=== PATIENT | female | born 1955 | race Caucasian/White ===

== ENCOUNTER 2016-11-19 16:31 | Emergency (ER) | payer OTHER ==
[~2016-11-19] VITALS: Ht 149.9 cm; Wt 55.0 kg
[~2016-11-19 16:31] MED LIST: AMI10 PO; ATEN-122; B12/1CAP; CITA-104 PO; GABA300C16 PO; GEMF600T PO; LEVO25TA59 PO; LISI10TA2 PO; LORA10TA3 PO; TRIA1CAP70
[2016-11-19 16:35] VITALS: Ht 149.9 cm; Wt 55.0 kg
[2016-11-19] MEDS ORDERED: SOD CHLORIDE 0.9% 1,000 ML IV STA (19:35)
[2016-11-19 20:09] LABS: BASOPHILS % 0.5 % (0.0-2.0); EOSINOPHILS # 0.3 10^3/ul (0.0-0.5); HEMOGLOBIN 12.9 g/dl (12.0-16.0); LYMPHOCYTES # 3.1 10^3/ul (0.8-2.9); LYMPHOCYTES % 38.5 % (15.0-51.0); MEAN CORPUSCULAR HEMOGLOBIN 33.3 pg (29.0-33.0); MEAN CORPUSCULAR HGB CONC 34.9 g/dl (32.0-37.0); MEAN CORPUSCULAR VOLUME 95.6 fl (82.0-101.0); MEAN PLATELET VOLUME 11.6 fl (7.4-10.4); MONOCYTE # 0.7 10^3/ul (0.3-0.9); NEUTROPHILS % 48.8 % (39.0-77.0); PLATELET COUNT 185 10^3/UL (140-415); RED BLOOD COUNT 3.87 10^6/ul (4.20-5.40); RED CELL DISTRIBUTION WIDTH 13.1 % (11.5-14.5); WHITE BLOOD COUNT 8.2 10^3/ul (4.8-10.8)
[2016-11-19 20:10] LABS: ADD UMIC YES; UR ASCORBIC ACID NEGATIVE (NEGATIVE); UR BACTERIA FEW /HPF (NONE SEEN); UR BILIRUBIN (Dip) NEGATIVE (NEGATIVE); UR BLOOD (Dip) NEGATIVE (NEGATIVE); UR CLARITY SLIGHTLY CLOUDY (CLEAR); UR COLOR YELLOW (YELLOW); UR GLUCOSE (Dip) NEGATIVE (NEGATIVE); UR KETONES (Dip) NEGATIVE (NEGATIVE); UR LEUKOCYTE ESTERASE (Dip) 3+ Leu/ul (NEGATIVE); UR NITRITE (Dip) NEGATIVE (NEGATIVE); UR RBC 2 /HPF (0-5); UR SPECIFIC GRAVITY (Dip) 1.009 (1.003-1.030); UR SQUAMOUS EPITHELIAL CELL FEW /HPF (FEW); UR TOTAL PROTEIN (Dip) NEGATIVE (NEGATIVE); UR UROBILINOGEN (Dip) NEGATIVE (NEGATIVE)
[2016-11-19 20:31] LABS: ALBUMIN 4.4 g/dl (3.3-4.9); ALBUMIN/GLOBULIN RATIO 1.46; BILIRUBIN,INDIRECT 0.1 mg/dl (0-1.1); BILIRUBIN,TOTAL 0.1 mg/dl (0.2-1.3); CALCIUM 10.1 mg/dl (8.4-10.2); CREATININE 0.84 mg/dl (0.44-1.00); POTASSIUM 3.3 mmol/L (3.5-5.1); TOTAL PROTEIN 7.4 g/dl (6.1-8.1)
--- NOTE | 2016-11-19 21:17 | RADRPT ---
PROCEDURE: XR Chest. CLINICAL INDICATION: Abdominal pain. TECHNIQUE: PA and Lateral views of the chest were obtained. COMPARISON: 09/26/2012. FINDINGS: The cardiomediastinal silhouette is within normal limits. Improved lung inflation over the interval The lungs are clear. No signs of pleural fluid or pneumothorax are seen. The osseous structures and soft tissues are unremarkable. IMPRESSION: No evidence for active cardiopulmonary disease. RPTAT: [facility] Physician Madi Date Time Electronically viewed and signed by Physician Madi on 11/19/2016 21:16 RS/
[2016-11-19] MEDS ORDERED: KETOROLAC 15 MG INJ ONE (21:23)
[2016-11-19] MEDS ORDERED: KETOROLAC 15 MG INJ IV ONE (22:33)
--- NOTE | 2016-11-19 23:29 | ERD ---
ER Documentation Chief Complaint Date/Time DATE: 11/19/16 TIME: 23:29 Chief Complaint GENERALIZED WEAKNESS X 4 DAYS. NO FEVER, NO N/V , FEELS WEAK HPI This is a 61-year-old female with a past medical history of hypertension, hypothyroidism, diabetes, peripheral neuropathy, previous vitamin deficiencies who is presenting with general fatigue for approximately 1 week. She denies fever or chills. She denies nausea or vomiting. She does have a mild general headache, which she has chronically. She denies chest pain or trouble breathing. She denies any abdominal pain. She denies changes to bowel movements. She had does endorse increased urinary frequency but no pain or burning. She has no focal deficits. She has no weakness or numbness or tingling to the face or extremities. ROS All systems reviewed and are negative except as per history of present illness. Medications Home Meds Active Scripts Cephalexin* (Cephalexin*) 500 Mg Capsule, 500 MG PO BID, #7 CAP Prov:NENITA ARRIOLA MD 11/19/16 Reported Medications Amitriptyline Hcl* (Elavil*) 10 Mg Tab, 10 MG PO HS 08/15/12 Gemfibrozil* (Lopid*) 600 Mg Tablet, 600 MG PO BID 08/15/12 Citalopram Hydrobromide* (Citalopram Hydrobromide*) 40 Mg Tablet, 40 MG PO DAILY 08/15/12 Loratadine* (Loratadine*) 10 Mg Tablet, 10 MG PO DAILY 08/15/12 Levothyroxine Sodium* (Synthroid*) 25 Mcg Tablet, 0.025 MG PO DAILY 08/15/12 Lisinopril* (Lisinopril*) 10 Mg Tablet, 10 MG PO DAILY 08/15/12 Gabapentin* (Gabapentin*) 300 Mg Capsule, 300 MG PO TID for 1 Day 11/15/10 B12/Fa/D3/Calc Cit/Zn Aa Chelt (Rx Balance Int Capsule) 1 Cap Capsule 02/10/10 Atenolol* (Tenormin*) 50 Mg Tablet 02/10/10 Triamterene/Hydrochlorothiazid (Triamterene-Hctz 37.5-25 Mg Cp) 1 Cap Capsule 02/10/10 Allergies Allergies: Coded Allergies: No Known Allergy (Verified , 11/19/16) PMhx/Soc History of Surgery: Yes (cholecycystectomy.hysterectomy) Anesthesia Reaction: No Hx Neurological Disorder: Yes (fibromyalgia) Hx Respiratory Disorders: No Hx Cardiac Disorders: Yes (htn) Hx Psychiatric Problems: No Hx Alcohol Use: No Hx Substance Use: No Hx Tobacco Use: No Smoking Status: Unknown if ever smoked FmHx Family History: diabetes Physical Exam Vitals Vital Signs Date Time Temp Pulse Resp B/P Pulse Ox O2 Delivery O2 Flow Rate FiO2 11/19/16 23:54 63 18 105/68 100 Room Air 11/19/16 23:00 63 18 95/56 100 Room Air 11/19/16 21:00 64 19 102/65 100 Room Air 11/19/16 19:35 58 18 137/83 100 Room Air 11/19/16 16:35 98.0 65 20 120/71 100 Physical Exam Const: NAD, Well developed, Well nourished Head: Atraumatic Eyes: Normal Conjunctiva ENT: Normal External Ears, Nose and Mouth. Neck: Full range of motion..~ No meningismus. Resp: Clear to auscultation bilaterally Cardio: Regular rate and rhythm, no murmurs Abd: Soft, non tender, non distended. Normal bowel sounds Skin: No petechiae or rashes Back: No midline or flank tenderness Ext: No cyanosis, or edema Neur: Awake and alert, Normal strength and sensation and coordination Psych: Normal Mood and Affect Result Diagram: 11/19/16194511/19/161945 Results 24 hrs Laboratory Tests Test 11/19/16 19:28 11/19/16 19:46 11/19/16 20:46 Urine Color YELLOW Urine Clarity SLIGHTLY CLOUDY Urine pH 5.0 Urine Specific [place] 1.009 Urine Ketones NEGATIVEmg/dL Urine Nitrite NEGATIVEmg/dL Urine Bilirubin NEGATIVEmg/dL Urine Urobilinogen NEGATIVEmg/dL Urine Leukocyte Esterase 3+[place]/ul Urine Microscopic RBC 2/HPF Urine Microscopic WBC 34/HPF Urine Squamous Epithelial Cells FEW/HPF Urine Bacteria FEW/HPF Urine Hemoglobin NEGATIVEmg/dL Urine Glucose NEGATIVEmg/dL Urine Total Protein NEGATIVEmg/dl White Blood Count 8.210^3/ul Red Blood Count 3.8710^6/ul Hemoglobin 12.9g/dl Hematocrit 37.0% Mean Corpuscular Volume 95.6fl Mean Corpuscular Hemoglobin 33.3pg Mean Corpuscular Hemoglobin Concent 34.9g/dl Red Cell Distribution Width 13.1% Platelet Count 02028^3/UL Mean Platelet Volume 11.6fl Neutrophils % 48.8% Lymphocytes % 38.5% Monocytes % 8.0% Eosinophils % 4.0% Basophils % 0.5% Nucleated Red Blood Cells % 0.0/100WBC Neutrophils # 4.010^3/ul Lymphocytes # 3.110^3/ul Monocytes # 0.710^3/ul Eosinophils # 0.310^3/ul Basophils # 0.010^3/ul Nucleated Red Blood Cells # 0.010^3/ul Sodium Level 140mmol/L Potassium Level 3.3mmol/L Chloride Level 104mmol/L Carbon Dioxide Level 29mmol/L Anion Gap 10 Blood Urea Nitrogen 17mg/dl Creatinine 0.84mg/dl Glucose Level 101mg/dl Calcium Level 10.1mg/dl Total Bilirubin 0.1mg/dl Direct Bilirubin 0.00mg/dl Indirect Bilirubin 0.1mg/dl Aspartate Amino Transf (AST/SGOT) 27IU/L Alanine Aminotransferase (ALT/SGPT) 32IU/L Alkaline Phosphatase 110IU/L Total Protein 7.4g/dl Albumin 4.4g/dl Globulin 3.00g/dl Albumin/Globulin Ratio 1.46 Thyroid Stimulating Hormone (TSH) 2.940MIU/L Free Thyroxine 1.17ng/dl Bedside Glucose 81mg/dL Current Medications Medications (Trade) Dose Ordered Sig/Santo Route PRN Reason Start Time Stop Time Status Last Admin Dose Admin Sodium Chloride (NS) 1,000 ml @ 1,000 mls/hr Q1H STAT IV 11/19/16 19:35 11/19/16 20:34 DC 11/19/16 21:05 Ketorolac Tromethamine (Toradol) 15 mg STK-MED ONCE .ROUTE 11/19/16 21:23 11/19/16 21:24 DC Ketorolac Tromethamine (Toradol) 15 mg ONCE ONCE IV 11/19/16 22:33 11/19/16 22:34 DC 11/19/16 22:39 Potassium Chloride (Klor-Con 20) 20 meq ONCE STAT PO 11/19/16 23:32 11/19/16 23:33 DC 11/19/16 23:43 Procedures/MDM MDM The patient's primary complaint is fatigue and intermittent lightheadedness. A presyncope workup will be performed. Infectious workup will also be completed. A cardiac workup will also be done. With a history of hypothyroidism on Synthroid, TSH will also be obtained. The patient has no focal deficits. She is neurovascularly intact. I do not suspect a neurologic etiology of her symptoms. Labs Patient's blood work was obtained and reviewed. The patient has no leukocytosis or left shift. She is not febrile and I do not suspect a systemic infection. The patient is not anemic. The patient's CMP demonstrates only a very mild hypokalemia at 3.3. Her renal function and other electrolytes are unremarkable. The patient's TSH is within normal limits. The patient's urine showed 3+ leuk esterase, many WBCs and few bacteria. There were also a few squamous cells, but I am suspicious of a urinary tract infection. Imaging CXR IMPRESSION: No evidence for active cardiopulmonary disease. Electronically viewed and signed by Physician Madi on 11/19/2016 21:16 EKG EKG read by me: Rate/Rhythm: Regular rate and rhythm at a rate of 63 Intervals: Normal [place]: Normal Impression: No evidence of ischemia or arrhythmia Treatment/Disposition The patient was given IV fluids and Toradol in the emergency department with resolution of her mild headache and any lightheadedness. Her vitals remained stable throughout assessment. The patient was also given potassium in the ER. She will be given a prescription for Keflex to treat her urinary tract infection. Urine culture will be sent off for evaluation of sensitivities to antibiotics. The patient was ambulatory in the emergency department without difficulty. At this time, I feel that she is stable for discharge. She will follow-up with her primary care doctor in 1-3 days. She will be given precautions with which to return to the emergency department. Departure Diagnosis: Primary Impression: UTI (urinary tract infection) Urinary tract infection type: site unspecified Hematuria presence: without hematuria Qualified Code: N39.0 - Urinary tract infection without hematuria, site unspecified Additional Impressions: Fatigue Fatigue type: unspecified Qualified Code: R53.83 - Fatigue, unspecified type Hypokalemia Headache Headache type: unspecified Headache chronicity pattern: unspecified pattern Intractability: not intractable Qualified Code: R51 - Nonintractable headache, unspecified chronicity pattern, unspecified headache type Condition: Stable JORDAN ARRIOLAFFREY MD Nov 19, 2016 23:29
[2016-11-19] MEDS ORDERED: POTASSIUM CHLORIDE (SR) 20 MEQ TAB PO STA (23:32)
[2016-11-19] MEDS ORDERED: CEPH500C PO (23:36)
[2016-11-19 23:54] VITALS: BP 105/68; PULSE 63; RESP 18
== END 2016-11-19 23:55 | disposition home or self-care (01) ==
LOC: E/R 16:31
DX: N39.0 Urinary tract infection, site not specified (principal); R53.83 Other fatigue; E87.6 Hypokalemia; R51 Headache; I10 Essential (primary) hypertension; E11.9 Type 2 diabetes mellitus without complications; E03.9 Hypothyroidism, unspecified
CPT/HCPCS: 71010; 80053; 81001; 82962; 84439; 84443; 85025; 87086; 93005; 96374; J1885; J7030; Z7502; Z7610

== ENCOUNTER 2017-10-27 05:54 | Day surgery (SDC) | END 2017-10-27 10:45 | disposition home or self-care (01) ==

== ENCOUNTER 2017-11-21 06:41 | Day surgery (SDC) | END 2017-11-21 12:03 | disposition home or self-care (01) ==